=== PATIENT | male | born 1945 | race Caucasian/White ===

== ENCOUNTER 2016-07-01 16:46 | Emergency (ER) | payer OTHER ==
[~2016-07-01] VITALS: Ht 172.7 cm; Wt 60.5 kg
[~2016-07-01 16:46] MED LIST: ALLER-CHLOR4 MG PO; ALLERGY4 MG PO; ATENOLOL50 MG PO; CATAPRES0.1 MG PO; CLARITIN,ALAVAR10 MG PO; CLARITIN10 MG PO; CLONIDINE HCL0.1 MG PO; HYDROCHLOROTHIA25 MG PO; HYDROCIL INSTA1 EAC1 PO; INDOCIN50 MG PO; LIDOCAINE700 MG TD; LISINOPRIL20 MG PO; MELOXICAM7.5 MG PO; METHOCARBAMOL500 MG PO; MOBIC15 MG PO; MOBIC7.5 MG PO; PREDNISONE10 M1 PO; PRINIVIL20 MG PO; PROTONIX40 MG PO; RANITIDINE HCL150 MG PO; ROBAXIN500 MG PO; SIMVASTATIN40 MG PO; SINEQUAN50 MG PO; SUCRALFATE1 GM PO; TRAMADOL HCL50 MG PO; ULTRAM50 MG PO; VITAMIN A & D60 GM TP; VITAMIN E TP; ZANTAC150 MG PO; ZOCOR40 MG PO; [UNRECOGNIZED DRUG - OTHER] TP
[2016-07-01] MEDS ORDERED: CLINDAMYCIN HC300 MG PO (17:36)
[2016-07-01 18:17] VITALS: BP 150/89
== END 2016-07-01 18:36 ==
LOC: EME 16:46
PROC: 3E0234Z Introduction of Serum, Toxoid and Vaccine into Muscle, Percutaneous Approach (ICD-10-PCS; principal; 2016-07-01)
DX: R45.851 Suicidal ideations (principal); S56.222A Laceration of other flexor muscle, fascia and tendon at forearm level, left arm, initial encounter; S11.81XA Laceration without foreign body of other specified part of neck, initial encounter; X78.8XXA Intentional self-harm by other sharp object, initial encounter; E78.5 Hyperlipidemia, unspecified; Z23 Encounter for immunization
CPT/HCPCS: 99281; 99285

== ENCOUNTER 2016-08-27 09:07 | Emergency (ER) | payer OTHER ==
[~2016-08-27] VITALS: Ht 180.3 cm; Wt 68.9 kg
[~2016-08-27 09:07] MED LIST changes: +CLINDAMYCIN HC300 MG PO
[2016-08-27 10:32] LABS: HEMATOCRIT 36.8 % (38.0-50.0); MCH 32.2 PG (29.0-34.0); MCHC 32.3 G/DL (30.0-36.0); MCV 99.7 FL (86-99); MEAN PLAT.VOLUME 10.9 uM^3 (9.0-12.4); PLATELET COUNT 134 K/uL (156-360); RBC DIS.WIDTH-CV 14.3 % (11.8-14.6); RBC DIS.WIDTH-SD 52.4 % (39-53); RED BLOOD COUNT 3.69 M/uL (4.00-5.50); WHITE BLOOD COUNT 2.9 K/uL (4.1-10.2)
[2016-08-27 10:42] LABS: CHLORIDE 107 mEq/L (99-109); POTASSIUM 3.3 mEq/L (3.7-5.4); SODIUM 142 mEq/L (136-147)
[2016-08-27 10:43] LABS: GLUCOSE 95 mg/dL (70-99)
[2016-08-27 10:45] LABS: ANION GAP 9 MEQ/L (2-14)
[2016-08-27 10:47] LABS: GFR ESTIMATE (CALCULATED) > 59 mL/min/
[2016-08-27 10:48] LABS: UREA NITROGEN (BUN) 17 mg/dL (9-23)
[2016-08-27] MEDS ORDERED: ULTRAM50 MG PO (12:54)
[2016-08-27 13:07] VITALS: BP 140/81
== END 2016-08-27 13:10 | disposition home or self-care (01) ==
LOC: EME → EDBD 09:07 → EME 09:07
PROVIDERS: Emergency Medicine
DX: M79.604 Pain in right leg (principal); M54.5 Low back pain; G89.29 Other chronic pain; E78.5 Hyperlipidemia, unspecified; I10 Essential (primary) hypertension; W22.8XXA Striking against or struck by other objects, initial encounter; Z86.73 Personal history of transient ischemic attack (TIA), and cerebral infarction without residual deficits; Z88.1 Allergy status to other antibiotic agents
CPT/HCPCS: 73590; 80048; 85027; 93971; 99281; 99285

== ENCOUNTER → 2016-09-16 | Outpatient (CLI) | payer OTHER ==
[~2016-09-16] VITALS: Ht 180.3 cm; Wt 68.9 kg
[2016-09-16 14:05] LABS: HEMATOCRIT 41.9 % (38.0-50.0); MCV 102.2 FL (86-99)
== END | disposition home or self-care (01) ==
LOC: AMB 13:38
PROVIDERS: Anesthesiology
PROC: 0DB68ZX Excision of Stomach, Via Natural or Artificial Opening Endoscopic, Diagnostic (ICD-10-PCS; principal; 2016-09-16)
DX: Z09 Encounter for follow-up examination after completed treatment for conditions other than malignant neoplasm (principal); Z87.11 Personal history of peptic ulcer disease; K31.84 Gastroparesis
CPT/HCPCS: 84132; 85014; 85018; 88305; 88342 TC

== ENCOUNTER → 2016-11-06 | Outpatient (CLI) | payer OTHER ==
[~2016-11-06] VITALS: Ht 170.2 cm; Wt 52.6 kg
[~2016-11-06] MED LIST changes: +LORCET 5-325 M1 EACH PO; +LORCET HD 10-31 EACH PO
== END | disposition home or self-care (01) ==
LOC: AMB 12:56
DX: K31.89 Other diseases of stomach and duodenum (principal); R10.9 Unspecified abdominal pain; R63.4 Abnormal weight loss; Z68.1 Body mass index [BMI] 19.9 or less, adult; R11.10 Vomiting, unspecified; K21.9 Gastro-esophageal reflux disease without esophagitis; Z86.73 Personal history of transient ischemic attack (TIA), and cerebral infarction without residual deficits; Z82.49 Family history of ischemic heart disease and other diseases of the circulatory system
CPT/HCPCS: 93005; J0330

== ENCOUNTER → 2016-12-04 | Outpatient (CLI) | payer OTHER ==
[~2016-12-04] VITALS: Ht 180.3 cm; Wt 59.9 kg
[~2016-12-04] MED LIST changes: +OXYCODONE-ACET1 EACH PO; +TENORMIN25 MG PO
== END | disposition home or self-care (01) ==
LOC: AMB 11:00
DX: K28.9 Gastrojejunal ulcer, unspecified as acute or chronic, without hemorrhage or perforation (principal); K31.89 Other diseases of stomach and duodenum; R63.4 Abnormal weight loss; R11.10 Vomiting, unspecified; Z98.84 Bariatric surgery status; D50.0 Iron deficiency anemia secondary to blood loss (chronic); I10 Essential (primary) hypertension; B18.2 Chronic viral hepatitis C; G89.29 Other chronic pain; M54.5 Low back pain; M25.511 Pain in right shoulder; K21.9 Gastro-esophageal reflux disease without esophagitis; E78.5 Hyperlipidemia, unspecified; F33.1 Major depressive disorder, recurrent, moderate; J30.89 Other allergic rhinitis; M19.90 Unspecified osteoarthritis, unspecified site; M06.9 Rheumatoid arthritis, unspecified
CPT/HCPCS: 88305; 88342 TC; C1726; J0330; J2250; J2405; J2765; J3010

== ENCOUNTER 2017-10-27 11:57 | Emergency (ER) | payer OTHER ==
[~2017-10-27] VITALS: Ht 180.3 cm; Wt 74.0 kg
[2017-10-27] MEDS ORDERED: NORCO 5/3251 TABLET PO (13:33)
[2017-10-27 15:02] VITALS: BP 152/82
== END 2017-10-27 15:02 | disposition home or self-care (01) ==
LOC: EME 11:57
DX: S93.402A Sprain of unspecified ligament of left ankle, initial encounter (principal); S80.12XA Contusion of left lower leg, initial encounter; V03.90XA Pedestrian on foot injured in collision with car, pick-up truck or van, unspecified whether traffic or nontraffic accident, initial encounter; W23.0XXA Caught, crushed, jammed, or pinched between moving objects, initial encounter; W18.30XA Fall on same level, unspecified, initial encounter; K21.9 Gastro-esophageal reflux disease without esophagitis; E78.5 Hyperlipidemia, unspecified; F32.9 Major depressive disorder, single episode, unspecified; Z87.891 Personal history of nicotine dependence; Z87.19 Personal history of other diseases of the digestive system; Z86.73 Personal history of transient ischemic attack (TIA), and cerebral infarction without residual deficits; Z88.1 Allergy status to other antibiotic agents
CPT/HCPCS: 73590; 73610; 73630; 99281; 99284